=== PATIENT | female | born 1955 | race Caucasian/White ===

== ENCOUNTER → 2017-02-20 | Outpatient (CLI) | payer BC, OTHER ==
[~2017-02-20] MED LIST: ACETAMINOPHEN-1 EAC1 PO; BACTRIM DS TAB1 EACH PO; CIPRO250 M1; CIPRO500 MG PO; ESTRACE2 M3 PO; ESTRIOL100 GM; FLAGYL500 M1 PO; FLAGYL500 MG; FLAGYL500 MG PO; GNP HEADACHE P1 EACH PO; HYDROCODONE-AP1 EAC6 PO; INVANZ 1GM/NS 101 GM IV; LEVAQUIN 500 M500 M4 PO; LEVAQUIN IV; MEROPENEM 1 GM V1 GM IV; MIRALAX255 GM PO; NAPROSYN500 MG PO; NORCO 5-325 TA1 EACH PO; PERCOCET 10-321 EACH PO; SENNA-S TABLET1 EACH PO; SENNA8.6 MG PO; TYLENOL PM PO; VANCOMYCIN100 MG/M1 PO; WELLBUTRIN SR150 MG PO; WELLBUTRIN XL150 MG PO; ZOFRAN ODT4 M1 PO; ZOFRAN ODT4 MG DISSOLVE; ZOMIG5 MG PO
== END ==
LOC: RAD 14:54
DX: S52.592A Other fractures of lower end of left radius, initial encounter for closed fracture (principal); M18.12 Unilateral primary osteoarthritis of first carpometacarpal joint, left hand; M19.042 Primary osteoarthritis, left hand; X58.XXXA Exposure to other specified factors, initial encounter; Y93.89 Activity, other specified; Y92.89 Other specified places as the place of occurrence of the external cause; Y99.8 Other external cause status

== ENCOUNTER → 2017-03-15 | Outpatient (CLI) | payer BC, OTHER | LOC: MRI 08:38 | DX: S63.622A Sprain of interphalangeal joint of left thumb, initial encounter (principal); F17.200 Nicotine dependence, unspecified, uncomplicated; Z90.710 Acquired absence of both cervix and uterus; X58.XXXA Exposure to other specified factors, initial encounter; Y93.89 Activity, other specified; Y92.89 Other specified places as the place of occurrence of the external cause; Y99.8 Other external cause status ==

== ENCOUNTER 2019-07-13 15:29 | Emergency (ER) | payer BC, OTHER ==
[~2019-07-13] VITALS: Ht 157.5 cm; Wt 97.5 kg
[2019-07-13 15:31] VITALS: BP 161/75
[2019-07-13] MEDS ORDERED: MELOXICAM15 MG PO (15:36)
[2019-07-13] MEDS ORDERED: TOPROL XL50 MG PO (15:36)
[2019-07-13] MEDS ORDERED: SPIRONOLACTONE100 M1 PO (15:36)
[2019-07-13] MEDS ORDERED: METHOTREXATE 22.5 M1 PO (15:37)
[2019-07-13] MEDS ORDERED: TRAMADOL 50 MG50 MG PO (15:56)
[2019-07-13] MEDS ORDERED: PREDNISONE 20 M20 MG PO (15:56)
[2019-07-13] MEDS ORDERED: NORFLEX100 MG PO (15:56)
== END 2019-07-13 16:10 | disposition home or self-care (01) ==
LOC: ER 15:29
DX: S39.012A Strain of muscle, fascia and tendon of lower back, initial encounter (principal); M25.551 Pain in right hip; G43.909 Migraine, unspecified, not intractable, without status migrainosus; Z79.899 Other long term (current) drug therapy; Z91.041 Radiographic dye allergy status; Z88.0 Allergy status to penicillin; Z88.6 Allergy status to analgesic agent; Z88.8 Allergy status to other drugs, medicaments and biological substances; Z87.891 Personal history of nicotine dependence; Z90.49 Acquired absence of other specified parts of digestive tract; Z90.710 Acquired absence of both cervix and uterus; Z98.890 Other specified postprocedural states; X58.XXXA Exposure to other specified factors, initial encounter; Y93.89 Activity, other specified; Y92.89 Other specified places as the place of occurrence of the external cause; Y99.8 Other external cause status

== ENCOUNTER → 2019-07-30 | Outpatient (CLI) | payer BC, OTHER ==
[~2019-07-30] VITALS: Ht 157.5 cm; Wt 105.7 kg
[~2019-07-30] MED LIST changes: +MELOXICAM15 MG PO; +METHOTREXATE 22.5 M1 PO; +NEURONTIN300 MG PO; +NORFLEX100 MG PO; +PERCOCET 10-321 EAC1 PO; +PREDNISONE 20 M20 MG PO; +SPIRONOLACTONE100 M1 PO; +TOPROL XL50 MG PO; +TRAMADOL 50 MG50 MG PO; +TYLENOL WITH CO1 TA1 PO; +XANAX 0.5 MG0.5 M1 PO
[2019-07-30 12:58] VITALS: BP 131/103
--- NOTE | 2019-07-30 13:08 | NUR ---
Pain Clinic Assessment: 1. History of Osteoarthritis: NONE History of Rheumatoid Arthritis: SHE SAYS YES 2. Height: 5 ft. 2 in. 157.5 cm. Weight: 233.0 lb. oz. 105.688 kg. Patient's BMI: 42.6 3. Vital Signs: BP: 131/103 Pulse: 84 Resp: 14 Temp: 02 Sat: 98 ECG Mon: 4. Pain Intensity: 2 5. Fall Risk: Dizziness: Y Needs help standing or walking: N Fallen in the last 3 months: N Fall risk comments: 6. Patient on Blood Thinner: Clopidogrel Bisulf(Plavix 7. History of Hypertension: Y 8. Opioid Therapy greater than 6 weeks: N Opiate Contract Signed: 9. Risk Assessment Tool Provided: 10. Functional Assessment Tool: 11. Recreational Drug Use: Current within past 3 mos Drug Type: MJ Tobacco Use: Light Tobacco Smoker Tobacco Type: Cigarettes Amount or Packs/day: How Many Years: Alcohol Use: No Frequency: Quant:
--- NOTE | 2019-08-19 14:07 | HPC ---
[facility] [place] [address] PAIN MANAGEMENT CONSULTATION Name: AMEYA MARTÍNEZ Room #: REG [facility].#: [id number] Admission: 07/30/19 Attend Phys: Solomon Sweet DO Discharge: Date of : 57 Report #: [id number] THIS REPORT FOR: cc: Zion Dowling MD, Neal A. MD Johnson, James E. DO ~ DATE OF SERVICE: 07/30/2019 REFERRING PHYSICIAN: Zion Dowling MD CHIEF COMPLAINT: Low back pain, right buttock and posterolateral thigh pain. HISTORY OF PRESENT ILLNESS: As you know, the patient is a 63-year-old female who reports spontaneous development of pain that began after sitting for extended period of time, writing a cook bulk. She indicates that the pain intensified 06/30/2019. She states pain begins in the upper buttock area, radiates to the groin and to the lower abdomen. She apparently went to the Emergency Department 2-1/2 weeks ago, advised that she had a normal MRI of the hip and that her symptoms were likely due to other sources. She was subsequently discharged home to follow up with her PCP. She describes pain at that time as aching and numbness and awakens her at night. She trialed conservative treatment options per Dr. Dowling's request, but noted no improvement in symptoms. She was subsequently then referred to our clinic. The patient indicates today pain is periodic, intermittent and brief. She describes the pain as cramping. She places current pain score 2/10, daily average of 4/10, worst pain has been is 10/10. The patient states that nothing seems to make her pain worse. Pain pills "tend to improve pain." She has been referred to our service to discuss interventional treatment options. PAST MEDICAL HISTORY: Morbid obesity, anxiety disorder, postmenopausal symptoms Chronic colon problems. PAST SURGICAL HISTORY: 1. Hysterectomy. 2. Bilateral tendon surgeries. 3. Colostomy with reversal. SOCIAL HISTORY: The patient reports continued smoking. She reports only 3-4 cigarettes a day, but as high as a pack a day for 45 years. She denies IV or illicit drug use. Denies any chronic alcohol use. She is a homemaker. She is not receiving workmen's compensation nor is trying to obtain disability benefits. She is unaccompanied at today's visit. REVIEW OF SYSTEMS: Positive for night sweats, fatigue and weakness, wearing [facility] [address] [place] [address] PAIN MANAGEMENT CONSULTATION Name: AMEYA MARTÍNEZ [id number] Admission: 07/30/19 Attend Phys: Solomon Sweet DO Discharge: Date of : 57 Report #: [id number] corrective eyewear, hearing loss with tinnitus, frequent diarrhea interspersed with constipation, nocturia, incontinence and dribbling to urine, lightheadedness and dizziness, numbness and tingling sensations, chronic low back pain. All other review of systems negative per 12-point review of systems other than those listed in history of present illness. Pain impact score 9/70 indicating mild interference of daily activities secondary to pain. ALLERGIES: CONTRAST AGENT AND PENICILLIN, MORPHINE, METRONIDAZOLE. CURRENT MEDICATIONS: Tylenol No. 3 with Codeine one tab every 6 hours p.r.n. for pain, methotrexate 2.5 mg 4 tabs per week, meloxicam 15 mg per day, metoprolol 50 mg per day, spironolactone 100 mg per day, bupropion XL 150 mg per day, Estrace 2 mg once a day. IMAGING: MRI of the right hip shows unremarkable pelvis and right hip. PHYSICAL EXAMINATION: VITAL SIGNS: Blood pressure 131/103, pulse is 84, respiratory rate 14 and unlabored. The patient is 98% on room air. Height 5 feet 2 inches tall, weight 233 pounds, BMI calculated 42.6. GENERAL: Well-developed, well-nourished, well-hydrated, class 3 morbidly obese 63-year-old female. She appears stated age, pain is rated at 2/10. HEENT: Normocephalic, atraumatic. Pupils equal, round and reactive. NEUROLOGIC: Speech is fluent. The patient deemed a fair historian. LUNGS: Appear clear. No wheeze, rhonchi or rales. CARDIOVASCULAR: Regular. No appreciable gallop, no rub. ABDOMEN: Soft, morbidly obese. Normoactive bowel sounds. EXTREMITIES: Show no clubbing, no cyanosis, and no edema. MUSCULOSKELETAL: Lower extremity strength equal and symmetrical 5/5, intact to light touch from L1 through S2 dermatomes. Seated straight leg raising negative. Supine straight leg raising mildly positive on the right. Alison's test is negative. Modified Gaenslen's positive for axial low back pain. Ankle clonus negative. Babinski is negative. ASSESSMENT: 1. Symptomatic lumbar radiculopathy. 2. Lumbosacral spondylosis with radiculopathy. 3. Morbid obesity. PLAN: 1. The patient returns today in followup visit where we have discussed the findings of her recent MRI, which shows a completely normal right hip and pelvis. They have been able to rule out any intrinsic hip pathology with this imaging. It would appear the patient is suffering from lumbar radiculopathy and [address] [address] PAIN MANAGEMENT CONSULTATION Name: AMEYA MARTÍNEZ [id number] Ad[facility]: 07/30/19 Attend Phys: Solomon Sweet DO Discharge: Date of : 57 Report #: [id number] thus the patient was referred to our clinic. We discussed with the patient today the treatment options for lumbar radiculopathy following was discussed with the patient today. We discussed physical therapy, stretching exercises, core strengthening and a concerted effort at weight loss. We discussed medication management utilizing neuropathic pain medication in the form of amitriptyline, nortriptyline, Cymbalta, Lyrica or gabapentin. We discussed epidural injections under fluoroscopic guidance for which the patient was referred to our clinic. We also discussed spinal cord stimulator therapy and ultimately surgical decompression. After reviewing the risks and benefits of all proposed treatment options, the patient chose to begin with medication management. 2. The patient was provided prescription of gabapentin 300 mg dose. She will begin 1 tab p.o. at bedtime for 5 nights and increase to 2 tabs p.o. at bedtime for 5 nights, then 3 tabs p.o. at bedtime for 5 nights and then potentially as much as 4 tabs p.o. at bedtime. The patient was advised to watch for side effects of sleepiness, disorientation, confusion, mental slowing with use of the medication. Prescription was provided to the patient via e-scribed. 3. We will see the patient back in followup visit on 08/13/2019 for possible lumbar epidural injection. We do need to obtain authorization for the patient to undergo lumbar epidural injection and we will begin this process immediately. We will have her return next week for the first in the series of epidural injections. She has made the appointment today. We will see her at 12:30 on 08/13/2019. 4. We wish to thank Dr. Zion Dowling for the referral of the patient to our clinic. We will keep you apprised of response to treatment as we address suspected lumbar radiculopathy. Again, we wish to thank you for the opportunity to see the patient in consultation. <ELECTRONICALLY SIGNED> By: Solomon Sweet DO 08/19/19 1407 [id number] Solomon Sweet DO /nt
== END ==
LOC: PAIN 06:46
PROVIDERS: ATTEND Anesthesiology Pain Medicine
DX: M47.816 Spondylosis without myelopathy or radiculopathy, lumbar region (principal); E66.01 Morbid (severe) obesity due to excess calories; Z79.899 Other long term (current) drug therapy

== ENCOUNTER → 2019-08-13 | Outpatient (CLI) | payer BC, OTHER ==
[~2019-08-13] VITALS: Ht 157.5 cm; Wt 107.0 kg
[2019-08-13 12:40] VITALS: BP 157/77
--- NOTE | 2019-08-13 12:47 | NUR ---
Pain Clinic Assessment: 1. History of Osteoarthritis: RIGHT KNEE THUMBS History of Rheumatoid Arthritis: Not Applicable 2. Height: 5 ft. 2 in. 157.5 cm. Weight: 236.0 lb. oz. 107.049 kg. Patient's BMI: 43.2 3. Vital Signs: BP: 157/77 Pulse: 74 Resp: 16 Temp: 02 Sat: 98 ECG Mon: 4. Pain Intensity: 5 5. Fall Risk: Dizziness: N Needs help standing or walking: N Fallen in the last 3 months: N Fall risk comments: 6. Patient on Blood Thinner: None 7. History of Hypertension: Y 8. Opioid Therapy greater than 6 weeks: N Opiate Contract Signed: 9. Risk Assessment Tool Provided: LOW-0 10. Functional Assessment Tool: 11. Recreational Drug Use: Current within past 3 mos Drug Type: Tobacco Use: Light Tobacco Smoker Tobacco Type: Cigarettes Amount or Packs/day: 2 PER DAY How Many Years: 47 Alcohol Use: No Frequency: Quant:
--- NOTE | 2019-08-19 14:07 | HPC ---
[facility] [place] [address] PAIN MANAGEMENT CONSULTATION Name: AMEYA MARTÍNEZ Room #: REG [facility]#: [id number] Admission: 08/13/19 Attend Phys: Solomon Sweet DO Discharge: Date of : 57 Report #: [id number] THIS REPORT FOR: cc: Zion Dowling MD, Neal A. MD Johnson, James E. DO ~ DATE OF SERVICE: 08/13/2019 REFERRING PHYSICIAN: Zion Dowling MD CHIEF COMPLAINT: Low back pain, right and left posterolateral thigh pain, right buttock pain. 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 She indicates prior to that, she had had no previous experience with back pain. It was to the point where the patient was describing pain more on the buttock area. She underwent imaging of the right hip, which showed no pathology. It was then believed her symptoms are related to lumbar radiculopathy and she was sent to our clinic. We saw the patient in clinic on 07/30/2019, diagnosed with lumbar radiculopathy and lumbosacral spondylosis with radiculopathy and started on medication management. She returns today in followup visit, now taking gabapentin 600 mg p.o. at bedtime. She is reporting improvement in symptoms. She continues to experience axial back pain due to facet arthropathy and wishes to discuss adjustments in medication management today. She is considering injection therapies, but has yet to undergo imaging of the lumbar spine to determine what the source of her symptoms might be. She is placing pain today at 5/10. States the pain is exacerbated with walking and standing, improves with sitting and repositioning. ALLERGIES: CONTRAST AGENT, PENICILLIN, MORPHINE, METRONIDAZOLE CURRENT MEDICATIONS: Estradiol, bupropion, spironolactone, metoprolol, meloxicam, methotrexate, Tylenol No. 3 with Codeine and Neurontin. SOCIAL HISTORY: The patient continues to smoke despite discussions to discontinue. She denies IV or illicit drug use. Denies any chronic alcohol use. She is a homemaker, unaccompanied today. IMAGING: No new imaging available. PHYSICAL EXAMINATION: VITAL SIGNS: Blood pressure 157/77, pulse is 74, respiratory rate 16 and unlabored. The patient is 98% on room air. Height 5 feet 2 inches tall, weight 236 pounds, BMI calculated 43.2. [facility] [address] [place] [address] PAIN MANAGEMENT CONSULTATION Name: AMEYA MARTÍNEZ Room #: REG [facility]#: [id number] Admission: 08/13/19 Attend Phys: Solomon Sweet DO Discharge: Date of : 57 Report #: [id number] GENERAL: Well-developed, well-nourished, well-hydrated, morbidly obese class 3 63-year-old female, appears stated age. Pain is rated today at around 5/10. HEENT: Normocephalic, atraumatic. Pupils equal, round and reactive. Speech fluent. EXTREMITIES: Show no clubbing, no cyanosis, no edema. MUSCULOSKELETAL: Lower extremity strength remains symmetrical 5/5, intact to light touch from L1 through S2 dermatomes. Seated straight leg raising negative. Supine straight leg raising positive on the right. Alison's test is negative. Modified Gaenslen's positive for axial low back pain. Ankle clonus negative. Babinski is negative. ASSESSMENT: 1. Symptomatic lumbar radiculopathy. 2. Lumbosacral spondylosis with radiculopathy. 3. Facet arthropathy of the lumbar spine. 4. Morbid obesity, class 3. 5. Chronic intractable pain. PLAN: 1. The patient returns today in followup visit having indicated some improvement in symptoms with gabapentin therapy for which she is taking 2 tablets at night. She is experiencing minor side effects to the medication at this time, but is going to escalate the dose further in hopes of gaining better analgesic benefit. We recommend to go to 900 mg at night for the next 7 nights, if no improvement in symptoms, no side effects, then she can escalate even further to 1200 mg dose. She has prescription available, does not need refills. 2. We will start the patient on naproxen sodium 500 mg dose 1 tab p.o. t.i.d. p.r.n. pain. I have given the patient #90 tablets, 2 refills. The patient will watch for dyspepsia, worsening of blood pressure, lower extremity edema with use of the medication. If she notes any side effects, discontinue. 3. We will send the patient for x-ray imaging of the lumbar spine for further evaluation. X-ray imaging will be obtained as quickly as possible, we will review those findings. We are planning to review this with the patient over the telephone. If further imaging is necessary, we will have the patient contact her PCP or return to our clinic to discuss more definitive imaging studies if necessary. We are hopeful we will have the imaging obtained today. She will keep us apprised of response to the medications provided at our visit today. 4. We will see the patient back in followup visit on an as needed basis. We have set her a tentative appointment in 1 month to discuss medications if they are effective or to discuss interventional treatments. <ELECTRONICALLY SIGNED> By: Solomon Sweet DO 08/19/19 1407 [id number] Solomon Sweet DO /nt
== END ==
LOC: PAIN 06:54
PROVIDERS: ATTEND Anesthesiology Pain Medicine
DX: M47.27 Other spondylosis with radiculopathy, lumbosacral region (principal); E66.01 Morbid (severe) obesity due to excess calories; G89.29 Other chronic pain; I70.0 Atherosclerosis of aorta; M79.652 Pain in left thigh; Z88.8 Allergy status to other drugs, medicaments and biological substances; Z79.899 Other long term (current) drug therapy